=== PATIENT | female | born 1970 | race Caucasian/White ===

== ENCOUNTER 2017-06-18 22:07 | Emergency (ER) | payer OTHER ==
[~2017-06-18] VITALS: Ht 170.2 cm; Wt 113.7 kg
[2017-06-18 22:12] VITALS: BP 153/92
[2017-06-18] MEDS ORDERED: ALBUTEROL (22:23)
[2017-06-18] MEDS ORDERED: LISI-167 PO (22:23)
[2017-06-18] MEDS ORDERED: METO25TA35 PO (22:23)
[2017-06-18] MEDS ORDERED: ROPI3TAB PO (22:23)
[2017-06-18] MEDS ORDERED: INHALER (22:23)
[2017-06-18] MEDS ORDERED: DULO60CA7 PO (22:23)
[2017-06-19 00:44] LABS: BLOOD UREA NITROGEN 9 mg/dL (7-18)
[2017-06-19 00:54] LABS: HEMATOCRIT 44.3 % (34.6-47.8); HEMOGLOBIN 14.7 g/dL (11.7-16.4); WHITE BLOOD COUNT 11.7 x10^3/uL (3.4-10)
[2017-06-19 00:55] LABS: LARGE PLATELETS 1+
== END 2017-06-19 01:40 | disposition home or self-care (01) ==
LOC: ED 23:59
DX: N93.8 Other specified abnormal uterine and vaginal bleeding (principal)
CPT/HCPCS: 36415; 76856; 80048; 82040; 84703; 85025; 99285